=== PATIENT | female | born 1975 | race Caucasian/White ===

== ENCOUNTER 2020-08-11 14:44 | Emergency (ER) | payer OTHER ==
[~2020-08-11] VITALS: Ht 162.6 cm; Wt 76.7 kg
[2020-08-11 14:47] VITALS: BP 156/93
--- NOTE | 2020-08-11 14:50 | NUR ---
PT TAKEN TO BED 7.
--- NOTE | 2020-08-11 15:05 | NUR ---
C/O HEADACHE TO L SIDE OF HEAD X3 DAYS. PT DENIES BLURRY VISION, N/V. NO SLURRED SPEECH OR FACIAL DROOP NOTED. PT A&O X4. BUE/BLE STRENGTH EQUAL, PERRLA 3MM. BED IN LOW POSITION, SIDE RAIL UP X1
--- NOTE | 2020-08-11 15:10 | NUR ---
geraldo salazar at bedside
[2020-08-11] MEDS ORDERED: KETOROLAC 60 MG/2 ML VIAL IM ONE (15:25)
--- NOTE | 2020-08-11 15:37 | NUR ---
Patient discharged with v/s stable. Written and verbal after care instructions given and explained. Patient alert, oriented and verbalized understanding of instructions. Ambulatory with steady gait. All questions addressed prior to discharge. ID band removed. Patient advised to follow up with PMD. Rx of norco & fluticasone given. Patient educated on indication of medication including possible reaction and side effects. Opportunity to ask questions provided and answered.
[2020-08-11 15:38] VITALS: BP 156/93
== END 2020-08-11 15:37 | disposition home or self-care (01) ==
LOC: MED 14:44
DX: J01.90 Acute sinusitis, unspecified (principal); D64.9 Anemia, unspecified; Z79.899 Other long term (current) drug therapy
CPT/HCPCS: 96372; 99283; J1885

== ENCOUNTER 2023-10-05 22:37 | Emergency (ER) | payer BC, OTHER ==
[~2023-10-05] VITALS: Ht 162.6 cm; Wt 77.1 kg
[2023-10-05 22:45] VITALS: BP 152/81; PULSE 105; RESP 20; TEMP 98; O2SAT 98
[2023-10-05] MEDS ORDERED: CIPR500T4 PO (23:54)
[2023-10-05] MEDS ORDERED: cefTRIAXone 1,000 MG in LIDOCAINE MPF 1% 2.1 ML IM ONE (23:55)
[2023-10-05] MEDS ORDERED: cefTRIAXone 1,000 MG VIAL ONE (23:59)
[2023-10-05] MEDS ORDERED: LIDOCAINE MPF 1% 5 ML ONE (23:59)
[2023-10-06 00:21] LABS: APPEARANCE,URINE CLEAR (CLEAR); BILIRUBIN,URINE NEGATIVE (NEGATIVE); BLOOD, URINE 3+ (NEGATIVE); LEUKOCYTE ESTERASE ,URINE 2+ (NEGATIVE); NITRITE, URINE NEGATIVE (NEGATIVE); PROTEIN,URINE 2+ (NEGATIVE); UGLUCOSE NEGATIVE (NEGATIVE); UROBILINOGEN,URINE 0.2 EU/dL (0.2 - 1)
[2023-10-06 00:23] LABS: COLOR,URINE AMBER (YELLOW)
[2023-10-06 00:28] LABS: BACTERIA,URINE 10-30 (MOD) /HPF (None Seen); MUCUS,URINE 1+ /LPF (None Seen); RBC,URINE >20 (MANY) /HPF (0-5); SQUAMOUS EPITHELIAL CELL,UR 0-3 (FEW) /LPF (0-3 (FEW)); WBC,URINE TOO MANY TO COUNT /HPF (0-5)
== END 2023-10-06 | disposition home or self-care (01) ==
LOC: MED 22:37
DX: N39.0 Urinary tract infection, site not specified (principal); Z98.890 Other specified postprocedural states; Z79.2 Long term (current) use of antibiotics
CPT/HCPCS: 81001; 81025; 87086; 96372; 99283; J0696; J2001